=== PATIENT | male | born 2000 | race Caucasian/White ===

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

== ENCOUNTER 2021-02-26 00:43 | Emergency (ER) | payer OTHER, MEDICAID ==
[~2021-02-26] VITALS: Ht 167.6 cm; Wt 85.7 kg
[~2021-02-26 00:43] MED LIST changes: +ABILIFY20 MG PO; +TRAZODONE HCL50 MG PO; +ZOLOFT50 MG PO
[2021-02-26 01:57] VITALS: BP 115/72
== END 2021-02-26 01:57 | disposition home or self-care (01) ==
LOC: M.ERS 00:43
DX: S63.592A Other specified sprain of left wrist, initial encounter (principal); F84.0 Autistic disorder; Z79.899 Other long term (current) drug therapy; X50.1XXA Overexertion from prolonged static or awkward postures, initial encounter; Y93.89 Activity, other specified; Y92.89 Other specified places as the place of occurrence of the external cause; Y99.9 Unspecified external cause status